=== PATIENT | male | born 1955 | race Caucasian/White ===

== ENCOUNTER 2017-10-14 14:31 | Emergency (ER) | payer OTHER ==
[~2017-10-14] VITALS: Ht 177.8 cm; Wt 84.8 kg
[~2017-10-14 14:31] MED LIST: GLIPIZIDE2.5 M1 PO; METFORMIN500 M1 PO; TERBINAFINE250 MG PO
[2017-10-14 14:39] VITALS: Ht 177.8 cm; Wt 84.8 kg
[2017-10-14 15:21] LABS: BASOPHIL % 0.2 % (0-2); PLATELET COUNT 288 x10^3mcL (130-400); RED CELL DISTRIBUTION WIDTH 13.3 % (11.5-14.5)
[2017-10-14 15:36] LABS: CALCIUM 9.2 mg/dL (8.5-10.1); CHLORIDE SERUM 99 mmol/L (98-107); CREATININE SERUM 1.2 mg/dL (0.7-1.3); GFR1 > 60 mL/min; GLUCOSE SERUM 429 mg/dL (74-106); SODIUM SERUM 137 mmol/L (136-145)
[2017-10-14 15:42] LABS: ALBUMIN 3.6 g/dL (3.4-5.0); ALKALINE PHOSPHATASE 77 U/L (46-116); ALT/SGPT 24 U/L (16-63); AST/SGOT 16 U/L (15-37); BILIRUBIN TOTAL 1.23 mg/dL (0.20-1.00); TOTAL PROTEIN, SERUM 7.5 g/dL (6.4-8.2)
[2017-10-14 16:58] VITALS: BP 154/74
== END 2017-10-14 16:58 | disposition home or self-care (01) ==
LOC: ED 14:31
PROVIDERS: Emergency Medicine
DX: H81.10 Benign paroxysmal vertigo, unspecified ear (principal); E11.9 Type 2 diabetes mellitus without complications; Z79.84 Long term (current) use of oral hypoglycemic drugs
CPT/HCPCS: J1815; J2060; J2405; J7030

== ENCOUNTER 2018-02-22 08:47 | Emergency (ER) | payer OTHER ==
[~2018-02-22] VITALS: Ht 180.3 cm; Wt 81.6 kg
[2018-02-22 08:51] VITALS: Ht 180.3 cm; Wt 81.6 kg
[2018-02-22 11:38] VITALS: BP 124/74
== END 2018-02-22 11:38 | disposition home or self-care (01) ==
LOC: ED 08:47
DX: R42 Dizziness and giddiness (principal); R11.0 Nausea; R51 Headache; E11.9 Type 2 diabetes mellitus without complications
CPT/HCPCS: 82962; J8597; Q0162

== ENCOUNTER 2018-07-12 21:42 | Emergency (ER) | payer OTHER ==
[~2018-07-12] VITALS: Ht 180.3 cm; Wt 86.2 kg
[2018-07-12 21:43] VITALS: Ht 180.3 cm; Wt 86.2 kg
[2018-07-12 23:49] VITALS: BP 123/87
== END 2018-07-12 23:49 | disposition home or self-care (01) ==
LOC: ED 21:42
DX: M79.601 Pain in right arm (principal); R21 Rash and other nonspecific skin eruption; E11.9 Type 2 diabetes mellitus without complications